=== PATIENT | female | born 1955 | race Caucasian/White ===

== ENCOUNTER 2017-01-07 14:52 | Observation (INO) | payer OTHER, MEDICARE ==
[~2017-01-07 14:52] MED LIST: ARIXTRA10 MG/0.8 SQ; CARBAMAZEPINE300 M1 PO; CYMBALTA60 M1 PO; ESTRACE1 MG PO; FOLIC ACID1 MG PO; IBUPROFEN200 M1 PO; KLONOPIN0.5 M1 PO; LYRICA100 MG PO; NORVASC5 M2 PO; SURFAK240 M1 PO; TOPAMAX25 M2 PO; TOPAMAX25 MG PO; TYLENOL PM EX-1 EAC1 PO; ULTRAM50 M1 PO; VITAMIN D250000 UNI1 PO
[2017-01-07 16:03] LABS: BASO % 0.5 % (0-2); EOS % 0.7 % (0-7); HCT-HEMATOCRIT 30.1 % (34.0-49.0); HGB-HEMOGLOBIN 10.4 gm/dl (12.0-15.5); LYMPH % 26.8 % (20-45); LYMPH ABSOLUTE COUNT 1.1 tho/cmm (0.8-4.5); MCH (MEAN CORPUSCULAR HGB) 33.8 pg (28.0-32.0); MCHC MEAN CORPUSCULAR HGB CONC 34.6 % (32.0-36.0); MCV (MEAN CELL VOLUME) 97.7 fl (82.0-96.0); MONO % 8.8 % (0-12); MONOCYTE ABSOLUTE COUNT 0.4 tho/cmm (0.0-1.2); NEUTROPHIL ABSOLUTE COUNT 2.6 tho/cmm (1.6-8.0); NEUTROPHIL-AUTOMATED 2.6 tho/cmm (1.6-8.0); NEUTROPHILS % 63.2 % (40-80); PLATELET COUNT 201 tho/cmm (150-450); RED BLOOD COUNT 3.08 mil/cmm (4.00-5.20); RED CELL DISTRIBUTION WIDTH 14.8 % (12.4-16.4); WHITE BLOOD COUNT 4.1 tho/cmm (4.0-10.0)
[2017-01-07 16:07] LABS: INR 0.9 INR (0.9-1.1); PROTHROMBIN TIME 10.2 SECONDS (9.0-13.6)
[2017-01-07 16:15] LABS: ANION GAP 12 mmol/L (0-20); BLOOD UREA NITROGEN 11 mg/dl (6-24); CALCIUM 8.4 mg/dl (8.5-10.5); CARBON DIOXIDE-VENOUS 28 mmol/L (22-32); CHLORIDE 94 mmol/l (96-110); CREATININE 0.46 mg/dl (0.50-1.10); GLUCOSE 103 mg/dL (70-110); SODIUM 130 mmol/L (135-145); eGFR VALUE FOR BLACK >90 mL/Min
[2017-01-07] MEDS ORDERED: LYRICA100 MG/CAP PO (16:28)
[2017-01-07 16:47] LABS: URINE BILIRUBIN NEGATIVE (NEG); URINE BLOOD NEGATIVE (NEG); URINE GLUCOSE (UA) NEGATIVE (NEG); URINE KETONE NEGATIVE (NEG); URINE LEUKOCYTE ESTERASE NEGATIVE (NEG); URINE NITRITE NEGATIVE (NEG); URINE PROTEIN NEGATIVE (NEG)
[2017-01-07 16:48] LABS: URINE APPEARANCE CLOUDY; URINE COLOR YELLOW
[2017-01-07 16:53] LABS: URINE AMORPHOUS 3+; URINE EPITHELIAL CELLS 0-1 /[HPF] (0-10); URINE RBC 0 /[HPF] (0-5); URINE WBC 0 /[HPF] (0-5)
[2017-01-07] MEDS ORDERED: MELATONIN3 M4 PO (16:53)
[2017-01-07] MEDS ORDERED: IBUPROFEN200 M2 PO (16:54)
[2017-01-07] MEDS ORDERED: TYLENOL PM EX-1 EAC4 PO (16:54)
[2017-01-08 19:14] LABS: TSH-THYROID STIMULATING HORM. 0.79 uIU/ml (0.40-3.80)
[2017-01-09 06:53] LABS: CHOLESTEROL 275 mg/dl (120-200); TRIGLYCERIDES 57 mg/dl (<149); VLDL 11 mg/dl (0-30)
[2017-01-09 07:05] LABS: HDL CHOLESTEROL >150 mg/dl (40-60); LDL CHOLESTEROL 114 mg/dl (0-99)
[2017-01-09] MEDS ORDERED: TYLENOL325 M2 PO (11:28)
[2017-01-09] MEDS ORDERED: CARBATROL300 M1 PO ×2 (11:33→11:37)
== END 2017-01-09 13:22 ==
LOC: EDMED 14:52 → EMR2 18:28 → 5EB 01-08 07:30
PROVIDERS: Emergency Medicine; Internal Medicine; Psychiatry & Neurology Neurology; ADMIT Hospitalist
DX: H55.09 Other forms of nystagmus (principal); I10 Essential (primary) hypertension; G44.40 Drug-induced headache, not elsewhere classified, not intractable; F32.9 Major depressive disorder, single episode, unspecified; T42.1X5A Adverse effect of iminostilbenes, initial encounter; R27.0 Ataxia, unspecified; G40.909 Epilepsy, unspecified, not intractable, without status epilepticus; E78.5 Hyperlipidemia, unspecified; Z86.718 Personal history of other venous thrombosis and embolism; Z86.711 Personal history of pulmonary embolism; F17.220 Nicotine dependence, chewing tobacco, uncomplicated; E66.9 Obesity, unspecified; F41.9 Anxiety disorder, unspecified; E83.119 Hemochromatosis, unspecified; Z72.89 Other problems related to lifestyle
CPT/HCPCS: A9577; C8929; G0378; G8987-GO-CH; G8988-GO-CH; G8989-GO-CH; J0780; J1200; J1650; J7030